=== PATIENT | male | born 1940 | race Caucasian/White ===

== ENCOUNTER 2017-02-17 15:32 | Emergency (ER) | payer OTHER, BC ==
[2017-02-17 15:46] VITALS: TEMP 98
--- NOTE | 2017-02-17 16:12 | EDPHY ---
H & P Stated Complaint: Rash on RLE x 1day , sent by urgent care to r/o clot - Personal History Current Tetanus Diphtheria and Acellular Pertussis (TDAP): Yes - Medical/Surgical History Hx Asthma: No Hx Chronic Respiratory Disease: No Hx Diabetes: No Hx Cardiac Disease: No Hx Renal Disease: No Hx Cirrhosis: No Hx Alcoholism: No Hx HIV/AIDS: No Hx Splenectomy or Spleen Trauma: No Other PMH: HTN, hypothyroid - Social History Smoking Status: Former smoker Time Seen by Provider: 02/17/17 15:56 HPI/ROS: CHIEF COMPLAINT: Concerns over possible DVT left lower extremity HISTORY OF PRESENT ILLNESS: 76-year-old male with no prior history of thromboembolism awoke with left lower extremity discoloration, soft tissue swelling to the left lower extremity this morning. Not painful. Normal temperature to the foot. Atraumatic. He return from a trip to [place] recently. He went to recommend an urgent care referred to the ER for concerns over possible DVT. Denies: Chest pain, dyspnea, abdominal pain, peripheral paresthesia, weakness , numbness PRIMARY CARE PROVIDER: Mu Carrasco MD, [facility] REVIEW OF SYSTEMS: A ten point review of systems was performed and is negative with the exception of the items mentioned in the HPI PAST MEDICAL & SURGICAL HISTORY: Hypothyroid. Hyperthyroidism. Hyperlipidemia. SOCIAL HISTORY: Nonsmoker, PHYSICAL EXAM (Prior to examination, patient consented to physical exam, hands were washed and my usual and customary physical exam procedures followed) 1) GENERAL: Very pleasant, smiling, shakes my hand Well-developed, well- nourished, alert and oriented. Appears to be in no acute distress. 2) HEAD: Normocephalic, atraumatic 3) HEENT: Pupils equal, round, reactive to light bilaterally. Sclera anicteric. 4) NECK: Full range of motion, no meningeal signs. 5) LUNGS: Clear auscultation bilaterally, breathing comfortably. 6) HEART: Regular rate and rhythm, no murmur, no heave, no gallop. 7) ABDOMEN: No guarding, no rebound,, 8) MUSCULOSKELETAL: left lower extremity: There is asymmetrical soft tissue swelling to the left pretibial region down to the left ankle. There is no tenderness in the compartments are soft. There is faint erythematous rash which is non blanchable, nontender, not indurated. Not consistent with cellulitis. DP and PT pulses are 2+ with brisk capillary refill, normal warm temperature and pink color 9) BACK: no visual or palpable abnormality. 10) SKIN: No rash, no petechiae. DIFFERENTIAL DIAGNOSIS: [in no particular include but limited to DVT, arterial thrombus, compartment syndrome, cellulitis (Sydney Aguirre) Constitutional: Initial Vital Signs Temperature (C) 36.7 C 02/17/17 15:41 Heart Rate 62 02/17/17 15:41 Respiratory Rate 14 02/17/17 15:41 Blood Pressure 172/83 H 02/17/17 15:41 O2 Sat (%) 91 L 02/17/17 15:41 O2 Delivery Mode Room Air Allergies/Adverse Reactions: bacitracin [From Neosporin ([id number])] Allergy (Mild, Verified 02/17/17 15: 41) Rash neomycin [From Neosporin ([id number])] Allergy (Mild, Verified 02/17/17 15:41 ) Rash polymyxin B [From Neosporin ([id number])] Allergy (Mild, Verified 02/17/17 15 :41) Rash Home Medications: Medication Instructions Recorded Aspirin [Aspirin 81mg (*)] 02/17/17 Fenofibric Acid (Choline) 135 mg PO 02/17/17 [TRILIPIX] Levothyroxine [Synthroid 100 mcg 100 mcg PO DAILY06 02/17/17 (*)] Losartan Potassium [Cozaar] 02/17/17 Metoprolol/Hydrochlorothiazide 02/17/17 [Metoprolol-Hctz 100-50 mg Tab] Prazosin HCl 02/17/17 Rivaroxaban [Xarelto 15mg (*)] 15 mg PO BID #42 tab 02/17/17 SIMVASTATIN 10 mg PO 02/17/17 Medical Decision Making - Diagnostics Imaging Results: Imaging Impressions Extremity Venous Study 02/17/17 15:56 Impression: DVT in peroneal veins throughout the calf. Findings discussed with Sydney Aguirre 02/17/2017 at 16:47. Images reviewed by myself (Sydney Aguirre) ED Course/Re-evaluation: The patient was evaluated and managed by the physician's welder assistant. My cosignature indicates that I reviewed the chart and I agree with the findings and plan of care as documented. I am the secondary supervising physician. ( Leonora Yeung) Patient was evaluated with serial examinations. He is noted to have a DVT in the right peroneal vein. On initial and repeat exams his neurovascularly intact with soft compartments, DP and PT pulses are present and brisk, 2+, brisk capillary refill normal color normal temperature. Doubt arterial occlusion. Discussed case with secondary supervising physician Dr. Yeung. Plan will be starting the patient on Xarelto and have him follow up on Sunday with his primary care provider in [place] (today is Sunday of a weekend). I spoke with his primary care provider Dr. Carrasco at 5: 31 p.m. and he agrees with the plan for Xarelto and follow up in the office this upcoming week. Usual and customary vascular precautions and orthopedic precautions provided. (Sydney Aguirre) - Data Points Laboratory Results: Laboratory Results 02/17/17 16:57 02/17/17 02/17/17 02/17/17 16:57 16:57 16:57 WBC 4.74 10^3/uL 10^3/uL (3.80-9.50) RBC 3.83 10^6/uL L 10^6/uL (4.40-6.38) Hgb 13.5 g/dL L g/dL (13.7-17.5) Hct 38.2 % L % (40.0-51.0) MCV 99.7 fL fL (81.5-99.8) MCH 35.2 pg H pg (27.9-34.1) MCHC 35.3 g/dL g/dL (32.4-36.7) RDW 13.1 % % (11.5-15.2) Plt Count 112 10^3/uL L 10^3/uL (150-400) MPV 10.9 fL fL (8.7-11.7) Neut % (Auto) 67.5 % % (39.3-74.2) Lymph % (Auto) 18.8 % % (15.0-45.0) Bullitt % (Auto) 7.0 % % (4.5-13.0) Eos % (Auto) 5.5 % % (0.6-7.6) Baso % (Auto) 0.8 % % (0.3-1.7) Nucleat RBC Rel Count 0.0 % % (0.0-0.2) Absolute Neuts (auto) 3.20 10^3/uL 10^3/uL (1.70-6.50) Absolute Lymphs (auto) 0.89 10^3/uL L 10^3/uL (1.00-3.00) Absolute Monos (auto) 0.33 10^3/uL 10^3/uL (0.30-0.80) Absolute Eos (auto) 0.26 10^3/uL 10^3/uL (0.03-0.40) Absolute Basos (auto) 0.04 10^3/uL 10^3/uL (0.02-0.10) Absolute Nucleated RBC 0.00 10^3/uL 10^3/uL (0-0.01) Immature Gran % 0.4 % % (0.0-1.1) Immature Gran # 0.02 10^3/uL 10^3/uL (0.00-0.10) PT Pending INR Pending APTT Pending Sodium Pending Potassium Pending Chloride Pending Carbon Dioxide Pending Anion Gap Pending BUN Pending Creatinine Pending Estimated GFR Pending Glucose Pending Calcium Pending Departure - Departure Disposition: Home, Routine, Self-Care Clinical Impression: Right leg DVT Qualifiers: Affected thrombotic vein of extremity: unspecified lower extremity distal vein Chronicity: acute Qualified Code(s): I82.4Z1 - Acute embolism and thrombosis of unspecified deep veins of right distal lower extremity Condition: Good Instructions: Deep Venous Thrombosis (ED) Additional Instructions: Return to the emergency department immediately if you develop discoloration to your leg, shortness of breath, or any other symptoms that concern you. Referrals: Follow-up, with Dr Carrasco on Sunday [Other] - 02/20/17 Prescriptions: Rivaroxaban [Xarelto 15mg (*)] 15 mg PO BID #42 tab
[2017-02-17 17:00] VITALS: RESP 16; O2SAT 96
[2017-02-17] MEDS ORDERED: RIVAROXABAN 15 MG TAB PO ONE (17:17)
[2017-02-17 17:28] LABS: % IMMATURE GRANULYOCYTES 0.4 % (0.0-1.1); ABSOLUTE IMMATURE GRANULOCYTES 0.02 10^3/uL (0.00-0.10); ADD DIFF? NO; ADD MORPH? NO; ADD SCAN? NO; ATYPICAL LYMPHOCYTE FLAG 0 (0-99); FRAGMENT RBC FLAG 0 (0-99); HEMATOCRIT 38.2 % (40.0-51.0); HEMOGLOBIN 13.5 g/dL (13.7-17.5); LEFT SHIFT FLG 10 (0-99); LIPEMIA HEMOLYSIS FLAG 90 (0-99); MEAN CELL HEMOGLOBIN 35.2 pg (27.9-34.1); MEAN CELL HEMOGLOBIN CONCENTR. 35.3 g/dL (32.4-36.7); MEAN CELL VOLUME 99.7 fL (81.5-99.8); MEAN PLATELET VOLUME 10.9 fL (8.7-11.7); PLATELET CLUMPS FLAG 30 (0-99); PLATELET COUNT 112 10^3/uL (150-400); RED BLOOD CELL COUNT 3.83 10^6/uL (4.40-6.38); RED CELL DISTRIBUTION WIDTH 13.1 % (11.5-15.2)
[2017-02-17 17:39] LABS: INR 1.13 (0.83-1.16); PROTIME(PATIENT) 14.4 SEC (12.0-15.0)
[2017-02-17 17:44] LABS: ANION GAP 10 mEq/L (8-16); CALCIUM 8.6 mg/dL (8.5-10.4); CARBON DIOXIDE 25 mEq/l (22-31); CHLORIDE 108 mEq/L (97-110); CREATININE 1.2 mg/dL (0.7-1.3); GLOMERULAR FILTRATION RATE 59; GLUCOSE 107 mg/dL (70-100); SODIUM 143 mEq/L (134-144)
[2017-02-17 17:51] VITALS: BP 169/87; PULSE 60
== END 2017-02-17 17:51 | disposition home or self-care (01) ==
DX: I82.4Z1 Acute embolism and thrombosis of unspecified deep veins of right distal lower extremity (principal); I10 Essential (primary) hypertension; Z79.82 Long term (current) use of aspirin; Z87.891 Personal history of nicotine dependence